=== PATIENT | male | born 1945 | race Caucasian/White ===

== ENCOUNTER 2022-03-04 11:00 | Outpatient (RCR) | payer MEDICARE, SELFPAY ==
[2021-12-04 11:53] VITALS: PULSE 103
== END 2022-03-04 13:30 | disposition home or self-care (01) ==
LOC: ANHCPREHAB 11:00
PROVIDERS: PCP Family Medicine
DX: Z95.5 Presence of coronary angioplasty implant and graft (principal)
CPT/HCPCS: 93798

== ENCOUNTER 2023-11-17 16:03 | Outpatient (CLI) | payer MEDICARE, SELFPAY ==
--- NOTE | ~2023-11-17 | XR_ITS ---
XR foot RT min 3V DATE: 11/17/2023 16:15 INDICATION: No injury. Foot pain. History of gout. TECHNIQUE: 4 views COMPARISON: None FINDINGS: There is osteopenia. There is slight plantar calcaneal enthesopathy. There are prominent calcifications of the posterior p lantar aponeurosis. Moderate osteoarthritis at the first metatarsophalangeal joint. No fracture, dislocation, periosteal reaction or bone destruction. Anterior and posterior tibial and dorsalis pedis artery and some metatarsal artery calcifications are noted. IMPRESSION: Prominent posterior plantar aponeurosis calcifications Slight plantar calcaneal enthesopathy Moderate osteoarthritis at first metatarsophalangeal joint Arterial calcifications Reviewed, dictated and finalized at location L. S ACCOUNT LEADER
== END 2023-11-17 16:04 ==
PROVIDERS: PCP Nurse Practitioner Family; Visit Provider Nurse Practitioner Family
DX: M79.671 Pain in right foot (principal); M77.31 Calcaneal spur, right foot; M19.071 Primary osteoarthritis, right ankle and foot; I70.90 Unspecified atherosclerosis
CPT/HCPCS: 73630

== ENCOUNTER → 2024-11-27 11:37 | Outpatient (REF) | payer MEDICARE, SELFPAY ==
--- OUTSIDE RECORDS SUMMARY | 2024-11-27 13:44 | XMS_ITS | Clinical Summary ---
Author Organization [facility] Address [address] [place] [address] Phone Care Team Providers Care Analyst Market Intelligence Name Role Phone Christopher Hilton MD Primary Care Provider [phone] Allergies No known active allergies Medications zoster vaccine recombinant, adjuvanted, RZV, (SHINGRIX) 50 mcg/0.5 mL Suspension for Reconstitution Inject 0.5 mL by intramuscular injection. To be given by pharmacist. 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 Gender Identity Not on file Sexual Orientation Not on file Last Filed Vital Signs Vital Sign Reading Time Taken Comments Blood Pressure - - Pulse - - Temperature - - Respiratory Rate - - Oxygen Saturation - - Inhaled Oxygen Concentration - - Weight 99.8 kg (220 lb) 05/18/2021 1:05 PM CDT Height 177.8 cm (5' 10 ) 05/18/2021 1:05 PM CDT Body Mass Index 31.57 05/18/2021 1:05 PM CDT Plan of Treatment Health Maintenance Due Date Last Done Comments DTAP/TDAP/TD VACCINES (1 - Tdap) 1965 PNEUMOCOCCAL VACCINE 65+ YEARS (1 of 1 - PCV) 08/18/19 96 ZOSTER VACCINE (1 of 2) 1996 RSV VACCINE (60+ or ) (1 - 1-dose 75+ series) 2021 INFLUENZA VACCINE (#1) 2024 Insurance RX [employer] RX Member Subscriber Plan / Payer (Ef fective 2015-Present) Name:Rakan Cates Relation to Subscriber:Self Name:Rakan Cates Payer ID:Not on file Group ID:[id number] Type:RX Medicare Part D Address: [place] MEDICARE PART A AND B [facility] [address] Care Teams Analyst Market Intelligence Relationship Specialty Start Date End Date Christopher Hilton MD PCP - General Family Practice 04/21/21
--- OUTSIDE RECORDS SUMMARY | 2024-11-27 13:44 | XMS_ITS | Clinical Summary ---
Author Organization [facility] Address [address] [place] [address] Care Team Providers Care Licsw Name Role Phone Christopher Hilton MD Primary Care Provider [phone] Allergies No known active allergies Medications irbesartan (AVAPRO) 300 mg tablet 03/12/2021 Active omeprazole (PriLOSEC) 20 mg capsule 03/12/2021 Active aspirin 81 mg enteric coated tablet Take 1 tablet (81 mg total) by mouth daily 30 tablet 11 09/09/2021 9 Active pyridoxine (VITAMIN B-6) 500 mg tablet Take 1 tablet (500 mg total) by mouth every other day Active amLODIPine (NORVASC) 10 mg tablet Take 1 tablet (10 mg total) by mouth daily 90 tablet 3 02/29/2024 Active atorvastatin (LIPITOR) 80 mg tablet TAKE 1 TABLET BY MOUTH ONCE DAILY 90 tablet 3 06/11/2024 Active metoprolol XL (TOPROL-XL) 25 mg extended release tablet TAKE 1 TABLET BY MOUTH ONCE DAILY 90 tablet 3 06/11/2024 Active Active Problems Problem Noted Date Diagnosed Date Coronary artery disease invo lving [place] coronary artery of [place] heart without angina pectoris 12/06/2022 Primary hypertension 10/13/2021 Mixed hyperlipidemia 10/13/2021 Abnormal stress test 09/16/2021 Overview (09/16/2021): Added automatically from request for surgery [id number] Acute chest pain 03/23/2021 Cervical radiculopathy 06/12/2013 Pain in ear 08/04/2011 Immunizations Immunization Administration Dates Next Due Moderna SARS-CoV-2 Monovalent Vaccination (12+ Y RS) 11/14/2020 Surgical History Surgery Date Site/Laterality Comments REPLACEMENT TOTAL KNEE JOINT REPLACEMENT Right Knee replace 07/30/18 SPINE SURGERY Spinal Stenosis, Oct 1998 Medical History Medical History Date Comments Hypertension Hypercholesteremia GERD (gastroesophageal reflux disease) 2009 Sleep apnea 2010 Heart disease Family History Medical History Relation Name Comments Heart attack Brother Jeremy luong Heart attack Father Fadi Luong Relation Name Status Comments Brother Jeremy luong Father Fadi Luong Social History Tobacco Use Types Packs/Day Years Used Date Smoking Tobacco: Never Smokeless Tobacco: Never Tobacco Cessation:Counseling Given: Not Answered Alcohol Use Standard Drinks/Week Comments Yes 3 (1 standard drink = 0.6 oz pur e alcohol) a day Personal Safety Answer Date Recorded Getting School Help Needed Not on file 09/14 Sex and Gender Information Value Date Recorded Sex Assigned at Not on file 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 Gender Identity Male 10/06/2021 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 Sexual Orientation Straight 10/06/2021 4: 07 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 Obstetrics History Last Filed Vital Signs Vital Sign Reading Time Taken Comments Blood Pressure 130/64 12/07/2023 9:32 AM 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 Pulse 81 12/07/2023 9:32 AM 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 Temperature 35.8 C (96.4 F) 10/22/2021 8:35 AM 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 Respiratory Rate 20 03/24/2021 3:00 PM CDT Oxygen Saturation 98% 12/07/2023 9:32 AM 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 Inhaled Oxygen Concentration - - Weight 102.5 kg (226 lb) 12/07/2023 9:32 AM 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 Height 177.8 cm (5' 10 ) 12/07/2023 9:32 AM 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 Body Mass Index 32.43 12/07/2023 9:32 AM 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 Plan of Treatment Health Maintenance Due Date Last Done Comments Depression Screening 1946 Fall Risk Assessment 1945 Hepatitis C Screening 1945 DTaP/Tdap/Td Vaccine (1 - Tdap) 1957 Hepatitis B Screening 1964 Zoster Vaccine (1 of 2) 1996 Well Visit 65+ 2011 Pneumococcal vaccine 65+ (2 of 2 - PCV) 07/20/2019 07/20/2018, 07/18/2018 Covid-19 Vaccine (2 - 4-2 5 season) 2024 11/14/2020 Influenza Vaccine (#1) 2024 0, 07/11/2019, 06/26/2018, Additional history exists Medical Devices Implanted Type Area Precision Instrument Maker Device Identifier Shelf Expiration Date Model / Serial / Lot [place] [id number] Stent Drug Eluting [facility] [id number] - S1 - [id number] Implanted:Qty: 1 on 10/22/2021 by Steven Maddox MD at [facility] Stent N/A: Coronary [place] Daniel 03/10/2022 [id number] / 1 / [id number] [place] [address] MEDICARE [facility] MEDICARE [facility] MEDICARE [facility] Advance Directives For more information, please contact: [phone] * Full Code (Latest Code Status on File) Date Activated Date Inactivated Comments 10/22/2021 1:53 PM 10/22/2021 8:15 PM * Full Code Date Activated Date Inactivated Comments 03/23/2021 7:33 PM 03/24/2021 8:38 PM Care Teams Licsw Relationship Specialty Start Date End Date Christopher Hilton MD PCP - General Family Medicine 05/11/21
--- OUTSIDE RECORDS SUMMARY | 2024-11-27 13:44 | XMS_ITS | Referral Summary ---
Author Organization [facility] Address [address] [place] [address] Care Team Providers Care Restrooms Or Lounges Maid Name Role Phone Christopher Hilton MD Primary Care Provider [phone] Allergies No known active allergies Medications irbesartan [...] Diagnosed Date Coronary artery disease invo lving [place] coronary artery of [place] heart without angina pectoris 12/06/2022 Primary hypertension 10/13/2021 Mixed hyperlipidemia 10/13/2021 Abnormal stress test 09/16/2021 Overview (09/16/2021): Added automatically from request for surgery [id number] Acute chest pain 03/23/2021 Cervical radiculopathy 06/12/2013 Pain in ear 08/04/2011 Immunizations Immunization Administration Dates Next Due Moderna SARS-CoV-2 Monovalent Vaccination (12+ Y RS) 11/14/2020 Social History Tobacco Use Types Packs/Day Years [...] on file 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 Gender Identity Male 10/06/2021 4:06 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 Sexual Orientation Straight 10/06/2021 4: 07 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 Last Filed Vital Signs Vital Sign Reading Time Taken Comments Blood Pressure 130/64 12/07/2023 9:32 AM SIGNALS 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 ANALYST Pulse 81 12/07/2023 9:32 AM SIGNALS 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 ANALYST Temperature 35.8 C (96.4 F) 10/22/2021 8:35 AM SIGNALS 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 ANALYST Respiratory Rate 20 03/24/2021 3:00 PM CDT Oxygen Saturation 98% 12/07/2023 9:32 AM SIGNALS 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 ANALYST Inhaled Oxygen Concentration - - Weight 102.5 kg (226 lb) 12/07/2023 9:32 AM SIGNALS 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 ANALYST Height 177.8 cm (5' 10 ) 12/07/2023 9:32 AM SIGNALS 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 ANALYST Body Mass Index 32.43 12/07/2023 9:32 AM SIGNALS 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 ANALYST Plan of Treatment Not on file Medical Devices Implanted Type Area Roustabout Crew Device Identifier Shelf Expiration Date Model / Serial / Lot [employer] [id number] Stent Drug Eluting S [facility] Mr [id number] - S1 - [id number] Implanted:Qty: 1 on 10/22/2021 by Steven Maddox MD at [facility] Stent N/A: Coronary [employer] Daniel 03/10/2022 [id number] / 1 / [id number] [place] [address] MEDICARE [facility] [address] [address] [facility] [place] [address] MEDICARE [facility] Advance Directives For more information, please contact: [phone] * Full Code (Latest Code Status on File) Date Activated Date Inactivated Comments 10/22/2021 1:53 PM 10/22/2021 8:15 PM * Full Code Date Activated Date Inactivated Comments 03/23/2021 7:33 PM 03/24/2021 8:38 PM Care Teams Restrooms Or Lounges Maid Relationship Specialty Start Date End Date Christopher Hilton MD PCP - General Family Medicine 05/11/21
== END ==
LOC: ANHLAB 11:37
PROVIDERS: Visit Provider Plastic Surgery
DX: C44.622 Squamous cell carcinoma of skin of right upper limb, including shoulder (principal)
CPT/HCPCS: 88305